=== PATIENT | male | born 1950 | race Caucasian/White ===

== ENCOUNTER 2018-08-11 11:48 | Day surgery (SDC) | payer OTHER ==
[2018-08-11] MEDS ORDERED: PROPOFOL 20 ML ×2 (12:59→14:36)
== END 2018-08-11 14:54 | disposition home or self-care (01) ==
LOC: GIL 11:48
DX: Z12.11 Encounter for screening for malignant neoplasm of colon (principal); K64.8 Other hemorrhoids; K57.30 Diverticulosis of large intestine without perforation or abscess without bleeding; K55.20 Angiodysplasia of colon without hemorrhage; I10 Essential (primary) hypertension
CPT/HCPCS: 45378